=== PATIENT | female | born 1935 | race Caucasian/White ===

== ENCOUNTER 2017-11-21 13:34 | Emergency (ER) | payer MEDICARE, BC ==
[~2017-11-21] VITALS: Ht 165.1 cm; Wt 69.9 kg
[2017-11-21 14:13] LABS: PARTIAL THROMBOPLASTIN TIME 28 SECONDS (22-32); PROTHROMBIN TIME 10.2 SECONDS (9.0-12.0)
[2017-11-21 14:17] LABS: ALANINE AMINOTRANSFERASE 23 U/L (12-78); ALBUMIN 4.3 G/DL (3.4-5.0); ALBUMIN/GLOBULIN RATIO 1.2 (1.1-1.5); ALKALINE PHOSPHATASE 75 IU/L (46-116); ANION GAP 11 (8-16); ASPARTATE AMINO TRANSFERASE 23 U/L (10-37); BILIRUBIN,TOTAL 0.4 MG/DL (0.1-1.0); BLOOD UREA NITROGEN 12 MG/DL (7-18); BUN/CREATININE RATIO 14.6 (6.6-38.0); CALCIUM 9.7 MG/DL (8.5-10.1); CHLORIDE 101 MMOL/L (99-107); CREATININE 0.82 MG/DL (0.40-0.90); GLUCOSE 113 MG/DL (70-104); POTASSIUM 3.8 MMOL/L (3.5-5.1); SODIUM 142 MMOL/L (135-145); TOTAL CARBON DIOXIDE 30.4 MMOL/L (24-32); TOTAL PROTEIN 7.9 G/DL (6.4-8.2); eGFR 67 ML/MIN
[2017-11-21] MEDS ORDERED: meclizine 12.5mg tablet PO ONE (14:35)
[2017-11-21] MEDS ORDERED: ondansetron 4mg rapidly disintigrating tab PO ONE (14:35)
[2017-11-21 14:39] LABS: HEMATOCRIT 39.4 % (35.0-45.0); MEAN CORPUSCULAR HEMOGLOBIN 29.8 PG (27.0-31.0); MEAN CORPUSCULAR HGB CONC 33.1 % (33.0-36.5); MEAN CORPUSCULAR VOLUME 90.1 FL (78-98); RED BLOOD COUNT 4.37 X10'6 (4.20-5.60); RED CELL DISTRIBUTION WIDTH 13.4 % (11.5-14.5)
[2017-11-21 14:44] LABS: MEAN PLATELET VOLUME 7.5 FL (7.4-10.4); WHITE BLOOD COUNT 6.6 X10'3 (4.5-11.0)
[2017-11-21 14:45] LABS: PLATELET COUNT 202 X10'3 (140-440)
[2017-11-21 14:51] LABS: PLATELET ESTIMATE NORMAL; TOTAL CELLS COUNTED 100
[2017-11-21] MEDS ORDERED: MECL-111 PO (16:26)
[2017-11-21] MEDS ORDERED: ONDA4TAB6 PO (16:26)
[2017-11-21 16:46] VITALS: BP 75/78
== END 2017-11-21 16:48 | disposition home or self-care (01) ==
LOC: ER 13:34
DX: R42 Dizziness and giddiness (principal); R11.0 Nausea; E78.00 Pure hypercholesterolemia, unspecified; K21.9 Gastro-esophageal reflux disease without esophagitis; I10 Essential (primary) hypertension; Z87.11 Personal history of peptic ulcer disease; Z90.710 Acquired absence of both cervix and uterus
CPT/HCPCS: 36415; 70450; 71045; 80053; 84484; 85025; 85610; 85730; 99285; J8597; 93005